=== PATIENT | male | born 1990 | race Caucasian/White ===

== ENCOUNTER 2018-03-30 12:39 | Inpatient (IN) ==
[2018-03-30] MEDS ORDERED: Bisacodyl 10 MG Supp RECTAL PRN (17:26)
--- NOTE | 2018-03-30 17:49 | P.HPIM ---
History of Present Illness Primary Care Physician: No Primary Care Physician Chief Complaint: General fatigue, malaise, fever, rigors History of Present Illness: 27-year-old male with no chronic medical illnesses who presented to the hospital because of general malaise, fatigue, cough, congestion, fever, weakness, rigors. Patient states that his symptoms started approximately 4 days ago with general constitutional symptoms of low- grade fever, fatigue, decreased appetite. Progressively got worse where he started developing rigors, shortness of breath, cough, phlegm production of brown coloration. Because he was so weak his leg started buckling on his family took him to the emergency department for evaluation. Patient had findings with significant leukocytosis, febrile illness, sinus tachycardia. Full workup was ascertained with influenza testing which was negative, strep testing which was negative, blood cultures which are pending, mono testing which is negative. Chest x-ray was performed which radiologist indicated no acute cardiopulmonary process. Due to the patient's presenting symptoms, findings he was recommended by the ER physician the patient be admitted for further evaluation and management. Patient is in a monogamous relationship with his . 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 Inpatient Certification Inpatient Certification: I certify that the inpatient services were ordered in accordance with Medicare regulations governing the order. This includes certification that hospital inpatient services are reasonable and necessary and in the case of services not specified as inpatient-only under 42 CFR 419.22(n), that they are appropriately provided as inpatient services in accordance to with the 2-midnight benchmark under 43 CFR 412.3(e) Estimated Total Length of Stay (Days): 3 Plans for Post Hospital Care: Not yet determined Review of Systems Review of Systems: all other systems reviewed are negative Constitutional: Reports chills, Reports fatigue, Reports fever(s), Reports lethargy and Reports malaise Respiratory: Reports change in phlegm color, Reports chest congestion, Reports cough and Reports excessive phlegm production PMFSH Medical History Medical History Patient denies medical problems (Acute) Surgical History Surgical History Hx of appendectomy (Acute) Family History Family History Other No pertinent family history Social History Social History Substance History: No History of Abuse Second Hand Smoke Exposure: Yes Smoking Status: Current every day smoker Tobacco Type: Cigarettes How Often Do You Have a Drink Containing Alcohol: 2 to 4 times a month Medications and Allergies Allergies Allergy/AdvReac Type Severity Reaction Status Date / Time No Known Allergies Allergy Verified 03/30/18 13:03 Home Medications Medication Instructions Recorded Confirmed Type No Known Home Medications 03/30/18 03/30/18 History Active Medications: Active Medications Acetaminophen (Tylenol) 650 mg PO Q4H PRN PRN Reason: Temp > 100.4 Al Hydroxide/Mg Hydroxide (Milk Of Magnesia Liq) 30 ml PO Q12H PRN PRN Reason: Mild Constipation Bisacodyl (Dulcolax Supp) 10 mg RECTAL DAILY PRN PRN Reason: SEVERE CONSITIPATION Heparin Sodium (Porcine) (Heparin Inj) 5,000 units SQ Q12H [place] Sodium Chloride (Ns Inj) 1,000 mls @ 100 mls/hr IV.CONT .Q10H [place] Lactulose (Lactulose Liq) 30 ml PO DAILY PRN PRN Reason: SEVERE CONSITIPATION Ondansetron HCl (Zofran Inj) 4 mg IV.PUSH Q6H PRN PRN Reason: NAUSEA OR VOMITING Senna/Docusate Sodium (Nicky-Colace) 1 tab PO BID [place] Sennosides (Senokot) 17.2 mg PO Q12H PRN PRN Reason: Moderate Constipation Sodium Chloride (Ns Flush) 2 ml IV.FLUSH BID [place] Sodium Chloride (Ns Flush) 2 ml IV.FLUSH PRN PRN PRN Reason: FLUSH AFTER USING IV ACCESS Physical Exam Narrative: GENERAL: Well-developed, well-nourished, in no acute distress. alert and orientated HEENT: Head is normocephalic without any lesions or masses noted. Facial features are symmetric. Eyes: Pupils equal round reactive to light. Extraocular muscles are intact. Conjunctivae were clear. Oropharyngeal: Pharynx without any erythema edema. Tongue is midline without deviation. Buccal mucosa is moist without any masses or lesions NECK: Supple without any masses. Trachea midline no deviation. No JVD, no bruits are appreciated CARDIAC: Regular rhythm, regular rate. S1/S2 are heard. No murmurs gallops or rubs. LUNGS: Clear to auscultation bilaterally. No wheeze, rhonchi or rales. No use of accessory muscles on inspiration or expiration. ABDOMEN: Soft, nontender. Nondistended. Bowel sounds heard in all 4 quadrants. No organomegaly or masses. Negative rebound, negative guarding EXTREMITIES: No edema, pulses are equal bilaterally. No cyanosis or clubbing NEUROLOGY: Mood and affect appear appropriate. Cranial nerves II through XII grossly intact. Muscle strength 5/5 in upper and lower extremities bilaterally. Deep tendon reflexes are 2+ in upper and lower extremities bilaterally. Caprini VTE Risk Assessment Caprini VTE Risk Assessment: No/Low Risk (score <= 1) Caprini Risk Assessment Model: Point Value = 1 Point Value = 2 Point Value = 3 Point Value = 5 Age 41-60 Minor surgery BMI > 25 kg/m2 Swollen legs Varicose veins or History of unexplained or recurrent spontaneous Oral contraceptives or hormone replacement Sepsis (< 1 month) Serious lung disease, including pneumonia (< 1 month) Abnormal pulmonary function Acute myocardial infarction Congestive heart failure (< 1 month) History of inflammatory bowel disease Medical patient at bed rest Age 61-74 Arthroscopic surgery Major open surgery (> 45 min) Laparoscopic surgery (> 45 min) Malignancy Confined to bed (> 72 hours) Immobilizing plaster cast Central venous access Age >= 75 History of VTE Family history of VTE Factor V Leiden Prothrombin [id number] Lupus anticoagulant Anticardiolipin antibodies Elevated serum homocysteine Heparin-induced thrombocytopenia Other congenital or acquired thrombophilia Stroke (< 1 month) Elective arthroplasty Hip, pelvis, or leg fracture Acute spinal cord injury (< 1 month) Prophylaxis Regimen: Total Risk Factor Score Risk Level Prophylaxis Regimen 0-1 Low Early ambulation 2 Moderate Order ONE of the following: *Sequential Compression Device (SCD) *Heparin 5000 units SQ BID 3-4 Higher Order ONE of the following medications: *Heparin 5000 units SQ TID *Enoxaparin/Lovenox 40 mg SQ daily (WT < 150 kg, CrCl > 30 mL/min) *Enoxaparin/Lovenox 30 mg SQ daily (WT < 150 kg, CrCl > 10-29 mL/min) *Enoxaparin/Lovenox 30 mg SQ BID (WT < 150 kg, CrCl > 30 mL/min) AND/OR *Sequential Compression Device (SCD) 5 or more Highest Order ONE of the following medications: *Heparin 5000 units SQ TID (Preferred with Epidurals) *Enoxaparin/Lovenox 40 mg SQ daily (WT < 150 kg, CrCl > 30 mL/min) *Enoxaparin/Lovenox 30 mg SQ daily (WT < 150 kg, CrCl > 10-29 mL/min) *Enoxaparin/Lovenox 30 mg SQ BID (WT < 150 kg, CrCl > 30 mL/min) AND *Sequential Compression Device (SCD) Assessment and Plan Plan Systemic inflammatory response syndrome, possible sepsis Patient meets criteria with febrile illness, tachycardia, leukocytosis, no infection source has been identified thus far Chest x-ray does not indicate any acute abnormality, urinalysis was clear, mono testing was negative, strep testing was negative, influenza testing was negative Blood cultures are pending Obtain Legionella testing, pneumococcal testing, sputum culture, respiratory panel Start vancomycin, Zosyn for empiric coverage Continue IV fluids Supportive care Follow CBC DVT prevention Subcutaneous heparin Sequential compression devices H&P: Quality VTE Deep Vein Thrombosis/Pulmonary Embolism Present on Admission: No
[2018-03-30] MEDS ORDERED: Vancomycin Consult Pharmacy OTHER PRN (17:57)
[2018-03-30] MEDS: Heparin - SQ 10,000 UNITS/ML Vial SQ SCH (18:35)
[2018-03-30] MEDS: Sod Chloride 0.9% Inj 1,000 ML IV.CONT SCH (18:35)
[2018-03-30] MEDS ORDERED: Vancomycin Inj 1,000 MG in Sodium Chlor 0.9% Inj 250 ML IV.SIG ONE ×2 (19:00→21:00)
[2018-03-30] MEDS ORDERED: Sod Chloride 0.9% Inj 1,000 ML IV.SIG ONE ×2 (19:01→21:46)
[2018-03-30] MEDS: Acetaminophen 325 MG Tablet PO PRN (20:02)
[2018-03-30] MEDS: Senna/Docusate Sodium 8.6/50 MG Tablet PO SCH (20:04)
[2018-03-30] MEDS: Piperacil/Tazo 4.5 GM Premix 4.5 GM/100 ML BAG IV.SIG SCH (21:51)
[2018-03-31] MEDS: Piperacil/Tazo 4.5 GM Premix 4.5 GM/100 ML BAG IV.SIG SCH ×4 (02:33→19:57)
[2018-03-31] MEDS: Acetaminophen 325 MG Tablet PO PRN (02:33)
[2018-03-31 03:28] LABS: Baso # (Auto) 0.1 th/mm3 (0.0-0.2); Baso % (Auto) 0.4 % (0.0-2.0); Eos # (Auto) 0.5 th/mm3 (0.0-0.4); Eos % (Auto) 2.1 % (0.0-4.0); Hematocrit 30.5 % (39.0-51.0); Hemoglobin 9.4 gm/dL (13.0-17.0); Lymph # (Auto) 1.5 th/mm3 (1.0-4.8); Lymph % (Auto) 6.4 % (9.0-44.0); Mean Corpuscular Hemoglobin 20.2 pg (27.0-34.0); Mean Corpuscular Volume 65.5 fL (80.0-100.0); Mono # (Auto) 1.1 th/mm3 (0.0-0.9); Mono % (Auto) 4.4 % (0.0-8.0); Neut % (Auto) 86.7 % (16.0-70.0); Platelet Count 307 th/mm3 (150-450); Red Blood Count 4.65 mil/mm3 (4.50-5.90); Red Cell Distribution Width 16.6 % (11.6-17.2); White Blood Count 24.2 th/mm3 (4.0-11.0)
[2018-03-31 03:35] LABS: Mean Corpuscular HGB Conc 30.9 % (32.0-36.0)
[2018-03-31 03:41] LABS: Potassium 3.6 meq/L (3.5-5.1)
[2018-03-31 04:25] LABS: Amphetamine Screen,Urine Pos (Neg); Barbiturate Screen,Urine Neg (Neg); Cannabinoid Screen,Urine Pos (Neg); Cocaine Screen,Urine Neg (Neg)
[2018-03-31 04:27] LABS: Opiate Screen,Urine Neg (Neg)
[2018-03-31 04:27] LABS: Albumin 2.9 g/dL (3.4-5.0); Calcium 7.4 mg/dL (8.5-10.1); Carbon Dioxide 22.1 meq/L (21.0-32.0); Total Protein 6.5 g/dL (6.4-8.2)
[2018-03-31 04:46] LABS: Dimorphic RBC Present; Ovalocytes 1+
[2018-03-31 05:25] LABS: ABG Base Excess -1.6 mmol/L (-2-2); ABG PCO2 36 mmHg (38-42); ABG PO2 67 mmHg (61-120)
[2018-03-31] MEDS: Sod Chloride 0.9% Inj 1,000 ML IV.CONT SCH ×2 (06:08→22:53)
[2018-03-31] MEDS ORDERED: Sod Chloride 0.9% Inj 1,000 ML IV.SIG SCH (06:09)
--- NOTE | 2018-03-31 06:36 | XR ---
EXAM DATE: 03/31/2018 6:31 AM EST AGE/SEX: 27 years / Male INDICATIONS: Respiratory distress. CLINICAL DATA: This is the patient's initial encounter. Patient reports that signs and symptoms have been present for 1 day and indicates a pain score of Nonresponsive. MEDICAL/SURGICAL HISTORY: None. Appendectomy. COMPARISON: [facility], CHEST 1V SINGLE AP, 03/30/2018. . FINDINGS: The study is obtained with a poor inspiratory effort. The heart size is upper limits of normal. It ma y be accentuated secondary to the poor inspiratory effort.. There is mild increased density at the in ferior aspect of the right upper lobe abutting the minor fissure and in the right base. There some mi nimal increased density at the lateral left base. CONCLUSION: Mild areas of consolidation or atelectasis being worse on the right. These do appear new. Electronically signed by: Mainor Shea MD Board Certified Radiologist 03/31/2018 6:35 AM EST
[2018-03-31] MEDS: Heparin - SQ 10,000 UNITS/ML Vial SQ SCH ×2 (06:40→18:50)
[2018-03-31] MEDS ORDERED: Propofol 1000 mg/100 ml Inj 1,000 MG/100 ML BOTTLE IV.CONT PRN (07:13)
[2018-03-31] MEDS ORDERED: Etomidate Inj 20 MG/10 ML Ampul IV.PUSH ONE (07:13)
[2018-03-31] MEDS ORDERED: Midazolam 100 MG/100 ML Inj 100 MG/100 ML BAG IV.CONT PRN (07:14)
[2018-03-31] MEDS ORDERED: Acetaminophen 325 MG Tablet PO PRN (07:19)
[2018-03-31] MEDS ORDERED: Propofol Inj 500 MG/50 ML Vial ONE (07:26)
[2018-03-31] MEDS ORDERED: Etomidate Inj 40 MG/20 ML Vial IV.PUSH ONE (07:30)
[2018-03-31] MEDS ORDERED: Norepinephrine Inj 16 MG in Sodium Chlor 0.9% Inj 234 ML IV.CONT PRN (08:00)
--- NOTE | 2018-03-31 08:07 | P.PCN ---
Date of procedure: 03/31/18 Pre-op diagnosis: Acute respiratory failure Post-op diagnosis: same Procedure: DATE: 03/31/2018 PROCEDURE: Orotracheal intubation INDICATION: Acute respiratory failure DETAILS OF PROCEDURE The patient was placed in optimal position and preoxygenated with 100% FiO2 via bag valve mask. At the start oxygen saturation was 90%. The patient was administered 20 mg etomidate IV and 50 mg rocuronium IV. I entered the oropharynx with a size 4 laryngoscope blade and obtained a grade 2 view of the airway. On single attempt a size 8.0 cuffed endotracheal tube was passed through the vocal cords. Correct tube location was confirmed with end tidal CO2 detector and by auscultating over bilateral lung silvestre. The endotracheal tube was secured with adhesive tape at a depth of 24 cm at the lips. The patient was connected to the ventilator. The patient tolerated the procedure well without any apparent complications. Oxygen saturations were maintained greater than 95% all times. STAT chest x-ray pending at time of dictation.
--- NOTE | 2018-03-31 08:08 | P.PCN ---
Date of procedure: 03/31/18 Pre-op diagnosis: Acute respiratory failure/hypotension Post-op diagnosis: same Procedure: DATE: 03/31/2018 CENTRAL LINE PLACEMENT: Left internal jugular vein. Ultrasound-guided INDICATION: Central venous access CONSENT Informed consent for procedure was not obtaining considered emergent due to hemodynamic instability. DESCRIPTION OF THE PROCEDURE The patient was placed in supine position. The skin was cleansed with Chloraprep. Additional barrier precautions included large sterile drape, sterile gloves, sterile gown, face mask, and hat. 1 % lidocaine was used for local anesthesia. Under direct ultrasound guidance and on initial attempt, the vein was accessed with an introducer needle. The guide wire was advanced and the tract was dilated. Using Seldinger technique a 7 [place] 20 cm antimicrobial coated triple-lumen catheter was advanced to a depth of 20 centimeters. The guide wire was removed. All ports had good return of dark venous blood and flushed easily with saline. The central line was secured with 2.0 silk. StatLock did not adhere to skin A sterile dressing with antibiotic disc was applied. ESTIMATED BLOOD LOSS: Minimal COMPLICATIONS: No apparent complications. STAT chest x-ray pending at time of dictation
--- NOTE | 2018-03-31 08:13 | P.CONCC ---
History of Present Illness Service: Critical care medicine Consult date: 03/31/18 Requesting Physician: Farhad Luna Reason for Consult: Respiratory failure Primary Care Provider: No Primary Care Physician Chief Complaint: General fatigue, malaise, fever, rigors History of Present Illness: This is a 27-year-old male. Admission 03/30/2018. Date of consultation 2018. No significant past medical history. He originally presented to the [facility] ED with chief complaint of general malaise, fatigue, cough, congestion , fever, weakness, rigors in reviewing medical records in [facility]. Full workup was ascertained with influenza testing which was negative, strep testing which was negative, blood cultures which are pending, mono testing which is negative. Chest x-ray revealed possible right infiltrate the patient was started on vancomycin Pipracil/tazobactam Patient had a leukocytosis, microcytic anemia and acute kidney injury on presentation with low albumin. Cultures revealed methamphetamine, benzodiazepines and cannabinoids. Patient became more hypoxic and hypotensive on the general medical floors transfer the ICU. Will reevaluate patient was on her percent nonrebreather with acute altered mental status. Patient was emergently intubated using 20 mg etomidate and 50 rocuronium essential was placed laboratories are currently pending. Review of Systems unobtainable due to endotracheal tube PMFSH - History History Provided By: Patient - Medical History Medical History: Medical History (Last Reviewed 03/31/18 @ 08:11 by Latrell Tolbert MD) Patient denies medical problems - Surgical History Surgical History: Surgical History (Last Reviewed 03/31/18 @ 08:11 by Latrell Tolbert MD) Hx of appendectomy - Family History Family History: Family History (Last Reviewed 03/31/18 @ 08:11 by Latrell Tolbert MD) Other No pertinent family history - Tobacco History Second Hand Smoke Exposure: Yes Tobacco Use In Past 30 Days: Yes Smoking Status: Current every day smoker Tobacco Type: Cigarettes - Alcohol History How Often Do You Have a Drink Containing Alcohol: 2 to 4 times a month - Substance Use History Substance History: Active Abuse Medications and Allergies Active Medications: Active Medications Acetaminophen (Tylenol) 650 mg PO Q6H PRN PRN Reason: Temp > 100.4 Al Hydroxide/Mg Hydroxide (Milk Of Magnesia Liq) 30 ml PO Q12H PRN PRN Reason: Mild Constipation Albuterol (Albuterol Neb (Prn)) 2.5 mg NEB Q2HR NEB PRN PRN Reason: DYSPNEA Albuterol (Duoneb Neb ([place])) 1 ampul NEB Q4HR NEB [facility] Last Admin: 03/31/18 08:05 Dose: 1 ampul Artificial Tears (Tears Naturale Opth Drops) 1 drop EACH EYE Q8H [facility] Bisacodyl (Dulcolax Supp) 10 mg RECTAL DAILY PRN PRN Reason: SEVERE CONSITIPATION Chlorhexidine Gluconate (Peridex 0.12% Oral Kit) 15 ml OROPHARYNG BID@0800, 2000 [facility] Heparin Sodium (Porcine) (Heparin Inj) 5,000 units SQ Q12H [facility] Last Admin: 03/31/18 06:40 Dose: 5,000 units Sodium Chloride (Ns Inj) 1,000 mls @ 100 mls/hr IV.CONT .Q10H [facility] Last Admin: 03/31/18 06:08 Dose: 100 mls/hr Piperacillin/Tazobactam/Dextrose (Zosyn 4.5 Gm Premix) 4.5 gm in 100 mls @ 200 mls/hr IV.SIG Q6H [facility] Last Infusion: 03/31/18 03:11 Dose: Infused Vancomycin HCl 1,500 mg/ (Sodium Chloride) 515 mls @ 257.5 mls/hr IV.SIG ONCE ONE Stop: 03/31/18 10:59 Midazolam HCl (Versed Inj) 100 mg in 100 mls @ 2 mls/hr IV.CONT TITRATE PRN; Protocol PRN Reason: See protocol Last Admin: 03/31/18 07:57 Dose: 2 mg/hr, 2 mls/hr Norepinephrine Bitartrate 16 (mg/ Sodium Chloride) 250 mls @ 1.87 mls/hr IV.CONT TITRATE PRN; Protocol PRN Reason: See Protocol Propofol (Diprivan 1000 Mg/100 Ml Inj) 1,000 mg in 100 mls @ 3.222 mls/hr IV.CONT TITRATE PRN; Protocol PRN Reason: Per Protocol Azithromycin 500 mg/ Sodium (Chloride) 250 mls @ 250 mls/hr IV.SIG Q24H [facility] Dexmedetomidine HCl 200 mcg/ (Sodium Chloride) 50 mls @ 5.37 mls/hr IV.CONT TITRATE PRN; Protocol PRN Reason: Per Protocol Lactulose (Lactulose Liq) 30 ml PO DAILY PRN PRN Reason: SEVERE CONSITIPATION Miscellaneous Medication () 1 each OROPHARYNG 0000,0400,1200,1600 [facility] Ondansetron HCl (Zofran Inj) 4 mg IV.PUSH Q6H PRN PRN Reason: NAUSEA OR VOMITING Pharmacy Profile Note (Vancomycin Consult Pharmacy) 1 each OTHER UNSCH PRN PRN Reason: Pharmacy to dose Senna/Docusate Sodium (Nicky-Colace) 1 tab PO BID [facility] Last Admin: 03/30/18 20:04 Dose: Not Given Sennosides (Senokot) 17.2 mg PO Q12H PRN PRN Reason: Moderate Constipation Sodium Chloride (Ns Flush) 2 ml IV.FLUSH BID [facility] Last Admin: 03/30/18 20:04 Dose: 2 ml Sodium Chloride (Ns Flush) 2 ml IV.FLUSH PRN PRN PRN Reason: FLUSH AFTER USING IV ACCESS Sodium Chloride (Ns Flush) 0 ml IV.FLUSH DAILY [facility] Sterile Water (Free Water) 100 ml G-TUBE Q8HR [facility] Terbutaline Sulfate (Brethine Inj) 1 mg SQ UNSCH PRN PRN Reason: For Extravasation Allergies Allergy/AdvReac Type Severity Reaction Status Date / Time morphine Allergy Hives Verified 03/30/18 22:19 Home Medications Medication Instructions Recorded Confirmed Type No Known Home Medications 03/30/18 03/30/18 History Physical Exam Vital signs: Vital Signs 03/30/18 17:30 03/30/18 19:43 03/30/18 20:00 Temperature 100.9 F H 99.8 F H Pulse Rate 112 H 122 H 123 H Respiratory Rate 20 48 H 16 Blood Pressure 111/74 109/56 L Pulse Oximetry 91 L 97 94 L 03/31/18 00:00 03/31/18 04:00 03/31/18 04:05 Temperature 101.9 F H 100.9 F H Pulse Rate 120 H 106 H 100 H Respiratory Rate 16 36 H 25 H Blood Pressure 120/56 L 91/50 L Pulse Oximetry 93 L 95 03/31/18 04:40 03/31/18 05:05 03/31/18 05:38 Temperature 98.4 F Pulse Rate 106 H 100 H Respiratory Rate 29 H 37 H Blood Pressure 96/48 L 85/53 L Pulse Oximetry 94 L 95 97 03/31/18 05:45 03/31/18 06:10 Temperature Pulse Rate Respiratory Rate Blood Pressure Pulse Oximetry 99 97 Intake & Output 03/30/18 03/31/18 03/31/18 18:59 06:59 18:59 Intake Total 120 / 120 3450 / 3450 Balance 120 / 120 3450 / 3450 Weight 107.4 kg Intake: IV 3450 / 3450 NS Inj 1,000 ML @ 100 mls/hr IV 1000 / 1000 .CONT .Q10H [place] Rx#:[id number] Zosyn 4.5 GM Premix 4.5 gm In 200 / 200 100 ml @ 200 mls/hr IV.SIG Q6H [place] Rx#:[id number] NS Inj 1,000 ML @ Wide Open IV. 1999 SIG BOLUS ONE Rx#:[id number] Vancomycin Inj 1,000 MG In NS 250 / 250 Inj 250 ML @ 250 mls/hr IV.SIG ONCE ONE Rx#:[id number] Oral 120 / 120 Other: # Voids 2 Date of Last Bowel Movement 03/30/18 Weight On Admission 107.4 kg - Constitutional mild distress - Routine HEENT Exam Head: Present: normocephalic, atraumatic Eye: Present: EOMI ENT: Present: mucous membranes moist - Routine Neck Exam Present: supple - Routine Respiratory Exam Present: accessory muscle use, respiratory distress, crackles, distant breath sounds - Routine Cardiovascular Exam Present: S1, S2, tachycardia. Absent: murmur - Routine Abdominal Exam Present: soft, normoactive bowel sounds - Routine Exam Patient deferred: penile exam, testicular exam, scrotal exam, groin exam, perineal exam - Routine Skin Exam Present: intact - Routine Neurological Exam Present: alert, CN II-XII intact. Absent: oriented X3, sensory deficit, motor deficit - Detailed Neurological Exam: Coma Scale Eye Opening: Spontaneous Verbal Response: Confused Motor Response: Localizing [place] Coma Scale Total: 13 - Routine Psychiatric Exam Present: unable to assess Septic Shock Reassessment Septic shock perfusion: reassessment completed Assessment and Plan - Assessment and Plan Plan: Neuro/Psych: Acute toxic metabolic encephalopathy due to underlying acute respiratory failure Urine toxicology positive for methamphetamine, benzodiazepines and cannabinoids Currently on propofol, midazolam index with any drips for sedation/vent synchrony Goal of RA SS -2 Daily sedation vacation Acetaminophen 650 by tube every 6 hours as needed fever We will start on vitamin bag daily. Monitor for withdrawals CV: Hypotension -likely volume depletion/severe sepsis Lactic acidosis pending. Follow-up on EKG and troponin Status post 4 L crystalloid resuscitation As needed norepinephrine maintain mean arterial pressure critical 65 Resp: Acute respiratory failure/hypoxic hypercapnic secondary to community acquired pneumonia/viral question PRVC Ventilator bundle Head of bed at 30 degrees Methylprednisolone succinate 40 mg IV twice daily Albuterol/ipratropium aerosols every 4 hours with albuterol aerosols every 2 as needed dyspnea Spontaneous breathing trials when clinically indicated/CPAP trials Follow-up on post intubation ABG and chest x-ray GI: Hypoalbuminemia NG tube placed. Start on Jevity 1.5 goal 60 cc an hour Pantoprazole for GI prophylaxis Docusate sodium/senna 1 tablet twice daily for bowel regimen : Yo catheter for accurate I's and O's in a critically ill patient Endo: Sliding scale insulin with Accu-Cheks to maintain euglycemia aspart insulin every 6 hours Renal: Acute kidney injury/resolved Likely secondary to volume depletion Check urine eosinophils Avoid nephrotoxic medication Monitor urine output Accurate I's and O's Heme: Leukocytosis Microcytic anemia Check iron studies/ferritin and transferrin. Occult blood. No indication for transfusion of blood products at this time. ID: Likely community acquired pneumonia Viral respiratory panel pending. Blood cultures x2, sputum, mono, influenza a and B, urine Legionella pneumococcal antigens all negative to date. Chlamydia and mycoplasma ordered Continue piperacillin/tazobactam and vancomycin and added azithromycin FEN: Currently on normal saline at 100 cc an hour. Replace electrolytes as clinically indicated per ICU likely protocol MSK: Physical therapy evaluate and treat Access -Utilize peripheral IV. Central line if indicated Prophylaxis -GI -lansoprazole -DVT -SCD/heparin subcu Consult 35 minutes critical care time excluding procedures Code Status: Full code Discussed Condition With: Patient. No family available. Care plan discussed and all questions answered.
[2018-03-31] MEDS ORDERED: Potassium Phosphate Inj 30 MMOL in Sodium Chlor 0.9% Inj 250 ML IV.SIG PRN (08:19)
[2018-03-31] MEDS ORDERED: Potassium Chlor 40 mEq Premix 40 MEQ/100 ML PIGGYBACK IV.SIG PRN ×2 (08:19)
[2018-03-31] MEDS ORDERED: Magnesium Oxide 400 MG Tablet PO PRN (08:19)
[2018-03-31] MEDS ORDERED: Magnesium Sulfate Inj 4 GM in Sodium Chlor 0.9% Inj 92 ML IV.SIG PRN (08:19)
[2018-03-31] MEDS ORDERED: Potassium Chlor 20 mEq Premix 20 MEQ/100 ML PIGGYBACK IV.SIG PRN ×2 (08:19)
[2018-03-31] MEDS ORDERED: Potassium Phosphate 500 MG Soluble Tablet PO PRN ×2 (08:19)
[2018-03-31] MEDS ORDERED: Sodium Phosphate Inj 30 MMOL in Sodium Chlor 0.9% Inj 250 ML IV.SIG PRN (08:19)
[2018-03-31] MEDS ORDERED: Magnesium Sulfate Inj 2 GM in Sodium Chlor 0.9% Inj 96 ML IV.SIG PRN (08:19)
[2018-03-31] MEDS ORDERED: Potassium Chloride 25 MEQ Effervescent Tablet PO PRN (08:19)
[2018-03-31] MEDS ORDERED: Dextrose 50% in Water 50 ML Vial IV.PUSH PRN (08:20)
--- NOTE | 2018-03-31 08:40 | XR ---
EXAM DATE: 03/31/2018 8:24 AM EST AGE/SEX: 27 years / Male INDICATIONS: Post intubation & central line placement. CLINICAL DATA: This is the patient's subsequent encounter. Patient reports that signs and symptoms h ave been present for 2 days and indicates a pain score of Nonresponsive. MEDICAL/SURGICAL HISTORY: . Smoker. Appendectomy. COMPARISON: [facility], CHEST 1V SINGLE AP, 03/31/2018. . FINDINGS: Portable AP view of the chest demonstrates a normal-sized cardiac silhouette. Endotracheal tube dista l tip is at the aortic knob level measuring 2.9 cm from the tangela, left IJ central line distal tip i s in the SVC, and nasogastric tube distal tip is in the gastric body. Multiple EKG lines overlie the patient. Lungs are underinflated and there is bilateral mid and lower lung zone airspace opacity. No pleural effusion or pneumothorax is identified. CONCLUSION: 1. Tubes and lines in appropriate position, as above. 2. Underinflation with bilateral airspace consolidation, stable from the prior examination. Electronically signed by: Mainor Ace MD Board Certified Radiologist 03/31/2018 8:38 AM EST
[2018-03-31 08:44] LABS: ABG Base Excess -4.2 mmol/L (-2-2); ABG PCO2 35 mmHg (38-42); ABG PO2 94 mmHg (61-120)
[2018-03-31] MEDS ORDERED: Vancomycin Inj 1,500 MG in Sodium Chlor 0.9% Inj 500 ML IV.SIG ONE (09:00)
[2018-03-31 09:02] LABS: Lipase 71 U/L (73-393)
[2018-03-31 09:03] LABS: Amylase 37 U/L (25-115)
[2018-03-31 09:09] LABS: Creatine Kinase 123 U/L (39-308)
--- NOTE | 2018-03-31 09:34 | US ---
EXAM DATE: 03/31/2018 9:27 AM EST AGE/SEX: 27 years / Male INDICATIONS: Increased BUN and Creatinine. CLINICAL DATA: This is the patient's initial encounter. Patient reports that signs and symptoms have been present for 1 day and indicates a pain score of Nonresponsive. MEDICAL/SURGICAL HISTORY: . Increased BUN and Creatinine. Appendectomy. COMPARISON: No prior exams available for comparison. MEASUREMENTS: Right Kidney:__11.0 x 6.8 x 5.0 cm Left Kidney:__10.9 x 5.8 x 5.4 cm FINDINGS: Right Kidney: Normal echogenicity and cortical thickness. No mass or hydronephrosis. Left Kidney: Normal echogenicity and cortical thickness. No mass or hydronephrosis. Bladder: Yo catheter is present. Bladder decompressed. Other: None. CONCLUSION: 1. Negative renal sonogram. 2. No evidence of hydronephrosis. Electronically signed by: Gerry Stapleton MD Board Certified Radiologist 03/31/2018 9:33 AM EST
[2018-03-31 10:11] LABS: Reticulocyte Percent 2.4 % (0.4-3.0)
[2018-03-31 10:20] LABS: % Iron Saturation 2.7 % (20-50)
[2018-03-31] MEDS: Azithromycin Inj 500 MG in Sodium Chlor 0.9% Inj 250 ML IV.SIG SCH (10:38)
[2018-03-31] MEDS: Chlorhexidine 0.12% Oral Kit 15 ML UDC OROPHARYNG SCH ×2 (10:40→20:05)
--- NOTE | 2018-03-31 10:53 | P.DIET ---
Nutritional Evaluation Type of nutrition evaluation: initial Nutrition consult regarding: Tube Feeding (TF review ) Objective - Diagnosis Right middle lobe pneumonia, sepsis without septic shock - Objective Body Mass Index: 39 [place] body weight: 62 kg (Class 2 obesity ) % IBW: 172 Body Weight Used for Calculations: Upper end of IBW (62kg) Energy Needs - Lower Range (kCal/kg): 30 Energy Needs - Upper Range (kCal/kg): 35 Lower Limit kCal/kg (kCals): 1,860 Upper Limit kCal/kg (kCals): 2,170 Lower Limit Protein Factor (Grams per Kg): 1.2 Upper Limit Protein Factor (Grams per Kg): 1.5 Lower Protein Needs (Protein): 74 Upper Protein Needs (Protein): 93 Dietitian Reviewed in Medical Record: Curent medications, Intake & Output, Labs , Medical history, Tube feeding Diet Order: TF Objective Comments: No significant PMH Medications; propofol labs; Cr. 1.5, GFR 56, random glucose 118 Feeding - Current Tube Feeding Tube Feeding Product: Jevity 1.5 Current kCals Provided by Tube Feedin,160 Current Protein Provided by Tube Feeding (gPRO): 92 Diprivan Rate: 3.22 Lipid kCals From Diprivan: 85 Assessment Assessment: TF review; Pt with no significant PMH presents to [facility] with general malaise, fatigue, cough, fever, decreased appetite x4 days. Pt overall found to have right middle lobe pneumonia and sepsis w/o septic shock. Pt emergently intubated this morning (1/3) and sedated with propofol. Current TF order is Jevity 1.5 running at 60mL per hour. Pt's energy and protein needs have been assessed and RD to recommend decreasing the rate of Jevity 1.5 to run at 50mL per hour to provide 1800kcal, 77g protein, 912mL free water plus an additional 85kcal from propofol to best meet pt's needs in the presence of critical illness and obesity. Labs and medications have been reviewed. Will continue to monitor clinical course and tolerance to TF. Recommendations: 1. Decrease TF rate to Jevity 1.5 at 50mL per hour 2. Monitor tolerance to TF at goal rate 3. Dietitian following Dietitian to Monitor: Lab values, Electrolytes, Intake & Output, Tube feeding tolerance, Medical course
[2018-03-31] MEDS: Oral Hygiene Kit OROPHARYNG SCH ×2 (13:35→18:50)
[2018-03-31] MEDS: MethylPREDNISolone Sod Succinate Inj 40 MG/ML Vial IV.PUSH SCH ×2 (13:40→22:52)
[2018-03-31] MEDS: Artificial Tears Opth Drops 15 ML Bottle EACH EYE SCH ×2 (13:40→18:51)
[2018-03-31] MEDS: Senna/Docusate Sodium 8.6/50 MG Tablet PO SCH ×2 (13:40→22:52)
[2018-03-31] MEDS: Vancomycin Inj 1,500 MG in Sodium Chlor 0.9% Inj 500 ML IV.SIG SCH (14:04)
[2018-03-31] MEDS: Dexmedetomidine Inj 200 MCG in Sodium Chlor 0.9% Inj 48 ML IV.CONT PRN ×2 (14:25→20:25)
[2018-03-31] MEDS: Multivitamin Inj 10 ML, Thiamine Inj 100 MG, Folic Acid Inj 1 MG in Sodium Chlor 0.9% I... IV.SIG SCH (14:33)
[2018-03-31] MEDS: Insulin NovoLOG Aspart Correctional Sugar Inj SQ SCH ×2 (14:34→18:52)
[2018-03-31 15:30] LABS: Creatinine,Urine Random 227 mg/dL (27-300); Sodium,Urine Random 153 meq/L
[2018-04-01] MEDS: Insulin NovoLOG Aspart Correctional Sugar Inj SQ SCH ×3 (02:34→12:21)
[2018-04-01] MEDS: Piperacil/Tazo 4.5 GM Premix 4.5 GM/100 ML BAG IV.SIG SCH ×4 (02:35→20:43)
[2018-04-01] MEDS: Oral Hygiene Kit OROPHARYNG SCH ×4 (02:35→18:17)
[2018-04-01] MEDS: Artificial Tears Opth Drops 15 ML Bottle EACH EYE SCH ×3 (02:36→16:58)
[2018-04-01] MEDS: Vancomycin Inj 1,500 MG in Sodium Chlor 0.9% Inj 500 ML IV.SIG SCH ×2 (02:41→13:20)
[2018-04-01] MEDS: Dexmedetomidine Inj 200 MCG in Sodium Chlor 0.9% Inj 48 ML IV.CONT PRN (03:48)
[2018-04-01 04:53] LABS: Baso % (Auto) 0.1 % (0.0-2.0); Eos % (Auto) 0.1 % (0.0-4.0); Hemoglobin 9.1 gm/dL (13.0-17.0); Lymph # (Auto) 0.8 th/mm3 (1.0-4.8); Lymph % (Auto) 4.1 % (9.0-44.0); Mean Corpuscular HGB Conc 31.3 % (32.0-36.0); Mean Corpuscular Hemoglobin 20.6 pg (27.0-34.0); Mean Corpuscular Volume 65.8 fL (80.0-100.0); Mean Platelet Volume 7.5 fL (7.0-11.0); Mono # (Auto) 0.3 th/mm3 (0.0-0.9); Mono % (Auto) 1.6 % (0.0-8.0); Neut # (Auto) 18.4 th/mm3 (1.8-7.7); Neut % (Auto) 94.1 % (16.0-70.0); Platelet Count 270 th/mm3 (150-450); Red Blood Count 4.41 mil/mm3 (4.50-5.90); Red Cell Distribution Width 17.2 % (11.6-17.2); White Blood Count 19.5 th/mm3 (4.0-11.0)
[2018-04-01 05:20] LABS: Activated Partial Thrombo Time 31.8 sec (23.4-31.7); INR 1.3 Ratio; Prothrombin Time 13.5 sec (9.8-11.6)
[2018-04-01] MEDS: Heparin - SQ 10,000 UNITS/ML Vial SQ SCH (05:25)
[2018-04-01 05:41] LABS: Chloride 114 meq/L (98-107); Potassium 3.4 meq/L (3.5-5.1); Sodium 142 meq/L (136-145)
[2018-04-01 06:12] LABS: Alanine Aminotransferase 23 U/L (12-78); Albumin 2.5 g/dL (3.4-5.0); Alkaline Phosphatase 63 U/L (45-117); Anion Gap 7 meq/L (5-15); Aspartate Aminotransferase 21 U/L (15-37); Blood Urea Nitrogen 12 mg/dL (7-18); Calcium 7.4 mg/dL (8.5-10.1); Glomerular Filtration Rate Greater Than 89 mL/min (>89); Glucose,Random 159 mg/dL (74-106); Magnesium 2.3 mg/dL (1.5-2.5); Phosphorus 1.8 mg/dL (2.5-4.9); Thyroid Stimulating Hormone 0.093 uIU/mL (0.358-3.740); Total Protein 6.4 g/dL (6.4-8.2)
--- NOTE | 2018-04-01 06:19 | P.PNCC ---
Subjective Subjective Remarks/Hospital Course: This is a 27-year-old male. Admission 03/30/2018. Date of consultation 2018. No significant past medical history. He originally presented to the [facility] ED with chief complaint of general malaise, fatigue, cough, congestion , fever, weakness, rigors in reviewing medical records in [facility]. Full workup was ascertained with influenza testing which was negative, strep testing which was negative, blood cultures which are pending, mono testing which is negative. Chest x-ray revealed possible right infiltrate the patient was started on vancomycin Pipracil/tazobactam Patient had a leukocytosis, microcytic anemia and acute kidney injury on presentation with low albumin. Cultures revealed methamphetamine, benzodiazepines and cannabinoids. Patient became more hypoxic and hypotensive on the general medical floors transfer the ICU. Will reevaluate patient was on her percent nonrebreather with acute altered mental status. Patient was emergently intubated using 20 mg etomidate and 50 rocuronium essential was placed laboratories are currently pending. SUBJECTIVE: 04/01: Temperature Max 101.9. Currently afebrile. PEEP still at 8. FiO2 40%. Tube is currently 20 cc now. Currently only on dexmedetomidine drip. Comfortable and arousable. Replacing potassium and phosphorus this a.m. Objective Vital Signs / I&O: Vital Signs 03/31/18 08:00 03/31/18 08:07 03/31/18 08:12 Temperature 101.9 F H Pulse Rate 118 H 106 H Respiratory Rate 16 25 H 17 Blood Pressure 120/61 Pulse Oximetry 97 99 03/31/18 08:37 03/31/18 08:40 03/31/18 08:42 Temperature Pulse Rate 110 H Respiratory Rate 17 Blood Pressure 87/53 L 89/51 L 95/58 L Pulse Oximetry 100 03/31/18 08:47 03/31/18 09:00 03/31/18 09:52 Temperature Pulse Rate 108 H 108 H Respiratory Rate 18 17 Blood Pressure 99/56 L Pulse Oximetry 100 100 99 03/31/18 10:06 03/31/18 11:00 03/31/18 11:07 Temperature Pulse Rate 102 H 106 H 108 H Respiratory Rate 17 18 18 Blood Pressure 97/58 L 110/69 Pulse Oximetry 100 99 99 03/31/18 11:39 03/31/18 12:00 03/31/18 12:07 Temperature Pulse Rate 108 H 110 H Respiratory Rate 18 22 Blood Pressure 91/47 L Pulse Oximetry 98 98 03/31/18 13:07 03/31/18 14:07 03/31/18 14:14 Temperature Pulse Rate 102 H 102 H Respiratory Rate 19 18 Blood Pressure 87/47 L 90/50 L 94/55 L Pulse Oximetry 100 100 03/31/18 15:07 03/31/18 16:00 03/31/18 16:07 Temperature Pulse Rate 104 H 118 H 106 H Respiratory Rate 22 19 Blood Pressure 92/50 L 102/56 L Pulse Oximetry 97 96 03/31/18 17:07 03/31/18 18:07 03/31/18 19:07 Temperature Pulse Rate 94 H 86 80 Respiratory Rate 18 18 17 Blood Pressure 95/55 L 99/61 L 103/61 Pulse Oximetry 97 98 98 03/31/18 19:18 03/31/18 20:00 03/31/18 21:00 Temperature 98.7 F Pulse Rate 81 84 76 Respiratory Rate 16 17 16 Blood Pressure 89/56 L 90/51 L Pulse Oximetry 98 97 97 03/31/18 22:00 03/31/18 22:03 03/31/18 23:00 Temperature Pulse Rate 68 68 Respiratory Rate 16 16 17 Blood Pressure 94/55 L 100/59 L Pulse Oximetry 98 97 96 03/31/18 23:21 04/01/18 00:00 04/01/18 01:00 Temperature 98.3 F Pulse Rate 72 68 64 Respiratory Rate 18 16 16 Blood Pressure 96/54 L 100/56 L Pulse Oximetry 96 96 04/01/18 01:10 04/01/18 02:00 04/01/18 03:00 Temperature Pulse Rate 64 62 Respiratory Rate 17 17 17 Blood Pressure 99/59 L Pulse Oximetry 95 95 93 L 04/01/18 03:28 04/01/18 04:00 04/01/18 04:44 Temperature 98 F Pulse Rate 63 70 Respiratory Rate 17 18 18 Blood Pressure Pulse Oximetry 92 L 94 L 04/01/18 05:00 04/01/18 06:00 Temperature Pulse Rate 66 76 Respiratory Rate 18 22 Blood Pressure 104/64 Pulse Oximetry 93 L 93 L Intake & Output 01/03/19 01/03/19 01/04/19 06:59 18:59 06:59 Intake Total 3450 / 3450 3676.2 / 3676.2 400 / 400 Output Total 119 / 119 925 / 925 Balance 3450 / 3450 3557.2 / 3557.2 -525 / -525 Weight 107.4 kg 108.9 kg Intake: IV 3450 / 3450 3376.2 / 3376.2 200 / 200 Precedex Inj 200 MCG In NS Inj 100 / 100 48 ML @ 0.2 MCG/KG/HR 5.37 mls/ hr IV.CONT TITRATE PRN Rx#: [id number] NS Inj 1,000 ML @ 100 mls/hr IV 1000 / 1000 1000 / 1000 .CONT .Q10H [facility] Rx#:[id number] Azithromycin Inj 500 MG In NS 250 / 250 Inj 250 ML @ 250 mls/hr IV.SIG Q24H [place] Rx#:[id number]-12 Inj 10 ML Thiamine Inj 511.2 / 511.2 100 MG Folvite Inj 1 MG In NS Inj 500 ML @ 125 mls/hr IV.SIG Q24H [place] Rx#:[id number] Zosyn 4.5 GM Premix 4.5 gm In 200 / 200 100 / 100 100 / 100 100 ml @ 200 mls/hr IV.SIG Q6H [facility] Rx#:[id number] NS Inj 1,000 ML @ 1000 mls/hr 2000 / 2000 1000 / 1000 IV.SIG BOLUS [facility] Rx#:[id number] Vancomycin Inj 1,000 MG In NS 250 / 250 Inj 250 ML @ 250 mls/hr IV.SIG ONCE ONE Rx#:[id number] Vancomycin Inj 1,500 MG In NS 515 / 515 Inj 500 ML @ 257.5 mls/hr IV. SIG Q12H [facility] Rx#:[id number] Oral 0 / 0 Tube Feeding 100 / 100 Water Bolus Amount 300 / 300 100 / 100 Output: Urine Amount (Catheter) 119 / 119 925 / 925 Indwelling Urethral Catheter 119 / 119 925 / 925 Other: # Voids 2 Date of Last Bowel Movement 03/30/18 # Bowel Movements 0 Weight On Admission 107.4 kg Result Diagrams: 04/01/18 04:45 04/01/18 04:45 Other Results: Microbiology 03/30/18 19:40 Sputum - Expectorated Sputum Gram Stain - Final 03/30/18 19:45 Urine - Random Urine Legionella Antigen - Final Presumptive negative for Legionella pneumophila serogroup 1 antigen in urine, suggesting no recent or recurrent infection. Infection due to Legionella cannot be ruled out since other serogroups and species may cause disease, antigen may not be present in urine in early infection, and the level of antigen present in the urine may be below the detection limit of the test. 03/30/18 19:45 Urine - Random Urine Streptococcus pneumoniae Antigen (M - Final Presumptive negative for streptococcus pneumoniae antigen, suggesting no current or recent infection. Infection due to Streptococcus pneumoniae cannot be ruled out since the antigen present in the sample may be below the detection limit of the test. Imaging: Abdomen/Bladder Ultrasound 03/31/18 00:00 CONCLUSION: 1. Negative renal sonogram. 2. No evidence of hydronephrosis. Chest X-Ray 03/31/18 06:09 CONCLUSION: Mild areas of consolidation or atelectasis being worse on the right. These do appear new. Chest X-Ray 03/31/18 07:51 CONCLUSION: 1. Tubes and lines in appropriate position, as above. 2. Underinflation with bilateral airspace consolidation, stable from the prior examination. Objective Remarks: GENERAL: 27-year-old male currently resting in bed no acute distress orotracheally intubated SKIN: Warm and dry. No rash. Multiple tattoos HEAD: Atraumatic. Normocephalic. EYES: Pupils equal and round. No scleral icterus. No injection or drainage. ENT: No nasal bleeding or discharge. Mucous membranes pink and moist. NECK: Trachea midline. No JVD. CARDIOVASCULAR: Regular rate and rhythm. RESPIRATORY: No accessory muscle use. Clear to auscultation. Breath sounds equal bilaterally. GASTROINTESTINAL: Abdomen soft, non-tender, nondistended. Hepatic and splenic margins not palpable. MUSCULOSKELETAL: Extremities without clubbing, cyanosis, or edema. No obvious deformities. NEUROLOGICAL: Sedated on the ventilator. Arousable. Moves all 4 extremities spontaneously. Assessment and Plan - Assessment and Plan Plan: Neuro/Psych: Acute toxic metabolic encephalopathy due to underlying acute respiratory failure Urine toxicology positive for methamphetamine, benzodiazepines and cannabinoids Currently on propofol, midazolam dexmedetomidine drip for sedation/vent synchrony Goal of RA SS -2 Daily sedation vacation Acetaminophen 650 by tube every 6 hours as needed fever We will start on vitamin bag daily for 2-3. Monitor for withdrawals CV: Hypotension -likely volume depletion/severe sepsis Follow-up on EKG and troponin Status post 4 L crystalloid resuscitation As needed norepinephrine maintain mean arterial pressure critical 65 Resp: Acute respiratory failure/hypoxic hypercapnic secondary to community acquired pneumonia/viral question [facility] 16550/1 point 04/05/39 Ventilator bundle Head of bed at 30 degrees Methylprednisolone succinate 40 mg IV twice daily Albuterol/ipratropium aerosols every 4 hours with albuterol aerosols every 2 as needed dyspnea Spontaneous breathing trials when clinically indicated/CPAP trials 04/02 ordered chest x-ray GI: Hypoalbuminemia NG tube placed. Continue Jevity 1.5 goal 50 cc an hour per nutrition's recommendations Lansoprazole for GI prophylaxis Docusate sodium/senna 1 tablet twice daily for bowel regimen : Yo catheter for accurate I's and O's in a critically ill patient Endo: Low TSH Sliding scale insulin with Accu-Cheks to maintain euglycemia aspart insulin every 6 hours Check total T3/free T4 Renal: Acute kidney injury/resolved Likely secondary to volume depletion Check urine eosinophils Avoid nephrotoxic medication Monitor urine output Accurate I's and O's Heme: Leukocytosis Microcytic anemia Low FE. Normal TIBC. Empirically start on ferrous sulfate 300 mg twice daily with vitamin C 500 mg daily Pending occult blood. No indication for transfusion of blood products at this time. ID: Likely community acquired pneumonia plus or minus aspiration Viral respiratory panel pending. Blood cultures x2, sputum, mono, influenza a and B, urine Legionella pneumococcal antigens all negative to date. Chlamydia and mycoplasma ordered Continue piperacillin/tazobactam and vancomycin and added azithromycin FEN: Hypokalemia Hypophosphatemia Currently on normal saline at 30 cc an hour. Replace electrolytes as clinically indicated per ICU electrolyte protocol 30 mmol K-Phos IV x1 now. Recheck in a.m. MSK: Physical therapy evaluate and treat Access -Utilize peripheral IV. Central line if indicated Prophylaxis -GI -lansoprazole -DVT -SCD/heparin subcu Follow-up 35 minutes critical care time excluding procedures Code Status: Full code
[2018-04-01] MEDS ORDERED: Potassium Phosphate Inj 30 MMOL in Sodium Chlor 0.9% Inj 250 ML IV.SIG ONE (06:21)
[2018-04-01 06:46] LABS: Dimorphic RBC Present; Ovalocytes 1+
[2018-04-01] MEDS: Azithromycin Inj 500 MG in Sodium Chlor 0.9% Inj 250 ML IV.SIG SCH (08:23)
[2018-04-01] MEDS: MethylPREDNISolone Sod Succinate Inj 40 MG/ML Vial IV.PUSH SCH ×2 (08:24→20:44)
[2018-04-01] MEDS: Ascorbic Acid 500 MG Tablet PO SCH (08:24)
[2018-04-01] MEDS: Ferrrous Sulfate 300 MG/5 ML UDC PO SCH ×2 (08:24→20:38)
[2018-04-01] MEDS: Chlorhexidine 0.12% Oral Kit 15 ML UDC OROPHARYNG SCH ×2 (08:25→20:38)
[2018-04-01] MEDS: Multivitamin Inj 10 ML, Thiamine Inj 100 MG, Folic Acid Inj 1 MG in Sodium Chlor 0.9% I... IV.SIG SCH (11:20)
[2018-04-01] MEDS: Senna/Docusate Sodium 8.6/50 MG Tablet PO SCH ×2 (12:20→20:38)
[2018-04-01] MEDS ORDERED: Pharmacy Ordered Lab Info OTHER ONE (23:45)
[2018-04-02] MEDS: Insulin NovoLOG Aspart Correctional Sugar Inj SQ SCH ×5 (00:05→17:39)
[2018-04-02] MEDS: Oral Hygiene Kit OROPHARYNG SCH ×2 (00:06→06:34)
[2018-04-02] MEDS: Vancomycin Inj 1,500 MG in Sodium Chlor 0.9% Inj 500 ML IV.SIG SCH ×2 (00:26→13:00)
[2018-04-02] MEDS: Artificial Tears Opth Drops 15 ML Bottle EACH EYE SCH ×3 (00:35→16:42)
[2018-04-02 00:43] LABS: Eos % (Auto) 0.1 % (0.0-4.0); Hematocrit 27.4 % (39.0-51.0); Hemoglobin 8.6 gm/dL (13.0-17.0); Lymph # (Auto) 0.7 th/mm3 (1.0-4.8); Lymph % (Auto) 2.5 % (9.0-44.0); Mean Corpuscular HGB Conc 31.3 % (32.0-36.0); Mean Corpuscular Hemoglobin 20.8 pg (27.0-34.0); Mean Corpuscular Volume 66.2 fL (80.0-100.0); Mean Platelet Volume 8.2 fL (7.0-11.0); Mono # (Auto) 0.8 th/mm3 (0.0-0.9); Mono % (Auto) 2.9 % (0.0-8.0); Neut # (Auto) 25.7 th/mm3 (1.8-7.7); Neut % (Auto) 94.5 % (16.0-70.0); Platelet Count 275 th/mm3 (150-450); Red Blood Count 4.14 mil/mm3 (4.50-5.90); Red Cell Distribution Width 17.4 % (11.6-17.2); White Blood Count 27.2 th/mm3 (4.0-11.0)
[2018-04-02 01:02] LABS: Chloride 113 meq/L (98-107); Potassium 3.3 meq/L (3.5-5.1); Sodium 142 meq/L (136-145)
[2018-04-02 01:05] LABS: Albumin 2.5 g/dL (3.4-5.0); Anion Gap 8 meq/L (5-15); Calcium 7.8 mg/dL (8.5-10.1); Carbon Dioxide 20.8 meq/L (21.0-32.0); Glucose,Random 204 mg/dL (74-106); Magnesium 2.4 mg/dL (1.5-2.5)
[2018-04-02 01:06] LABS: Blood Urea Nitrogen 14 mg/dL (7-18)
[2018-04-02 01:08] LABS: Alanine Aminotransferase 27 U/L (12-78); Aspartate Aminotransferase 26 U/L (15-37)
[2018-04-02 01:09] LABS: Glomerular Filtration Rate 73 mL/min (>89)
[2018-04-02 01:10] LABS: Total Protein 6.3 g/dL (6.4-8.2)
[2018-04-02 01:11] LABS: Alkaline Phosphatase 68 U/L (45-117)
[2018-04-02 02:34] LABS: Dimorphic RBC Present; Ovalocytes 1+
[2018-04-02] MEDS: Piperacil/Tazo 4.5 GM Premix 4.5 GM/100 ML BAG IV.SIG SCH ×4 (02:51→21:46)
[2018-04-02] MEDS ORDERED: Potassium Phosphate Inj 15 MMOL in Sodium Chlor 0.9% Inj 250 ML IV.SIG ONE (06:00)
[2018-04-02] MEDS: Heparin - SQ 10,000 UNITS/ML Vial SQ SCH ×3 (06:15→17:18)
--- NOTE | 2018-04-02 06:23 | XR ---
EXAM DATE: 04/02/2018 5:15 AM EST AGE/SEX: 27 years / Male INDICATIONS: Pneumonia. Status post extubation. CLINICAL DATA: This is the patient's subsequent encounter. Patient reports that signs and symptoms h ave been present for 3 days and indicates a pain score of 0/10. MEDICAL/SURGICAL HISTORY: . Smoker. Appendectomy. Central line. COMPARISON: [facility], CHEST 1V SINGLE AP, 03/31/2018. . FINDINGS: A single AP semierect portable view of the chest was obtained and demonstrates interval extubation an d removal of nasogastric tube. The lung volumes remain low. Streaky and hazy right perihilar opacity remains. The left internal jugular central venous line is unchanged. There is no distinct effusion. T he heart size is at the upper limits of normal. The bony thorax remains intact. CONCLUSION: 1. Interval extubation and removal of nasogastric tube. 2. Hazy and streaky right perihilar opacity remains. Electronically signed by: Mane Stewart MD Board Certified Radiologist 04/02/2018 6:21 AM EST
--- NOTE | 2018-04-02 09:47 | P.PNIM ---
Subjective Interval history: 27-year-old male who is seen examined today up on septic shock , hypoxic respiratory failure, right-sided pneumonia. Patient was originally admitted to medical service on 03/30/18. Patient was admitted with empirical antibiotics, respiratory support. Patient clinical condition deteriorated rather rapidly and patient was transferred to the ICU and subsequently intubated and placed on ventilator for respiratory support. Central line was placed for pressor administration. Patient was under the care of the washcloth folder and continued to tolerate treatment well. Patient was successfully extubated on 04/01/18. Once patient remained stable services were transferred back to the medical team. Upon seeing the patient today he appears to be much better. He is sitting up in bed and talking without any significant complaints. Patient still having low blood pressure with tachycardia, tachypnea. X-ray did show a significant right sided pneumonia. Patient remained ICU at this time since clinically he is still septic and with hypoxia. Physical Exam Vital signs: Last Vital Signs Temp 98.5 F 04/02/18 04:00 Pulse 113 H 04/02/18 07:34 Resp 30 H 04/02/18 07:34 BP 95/48 L 04/02/18 04:00 Pulse Ox 94 L 04/02/18 07:34 Intake & Output 03/31/18 04/01/18 04/02/18 04/03/18 06:59 06:59 06:59 06:59 Intake Total 3570 / 3570 4691.2 / 4691.2 3074.2 / 3074.2 Output Total 1044 / 1044 500 / 500 Balance 3570 / 3570 3647.2 / 3647.2 2574.2 / 2574.2 Weight 107.4 kg 108.9 kg 113 kg Narrative: GENERAL: Well-developed, well-nourished, in no acute distress. alert and orientated HEENT: Head is normocephalic without any lesions or masses noted. Facial features are symmetric. Eyes: Extraocular muscles are intact. Conjunctivae were clear. NECK: Supple without any masses. Trachea midline no deviation. No JVD, CARDIAC: Regular rhythm, regular rate. S1/S2 are heard. No murmurs gallops or rubs. LUNGS: Rhonchi heard in all lung silvestre, no wheeze or rales. No use of accessory muscles on inspiration or expiration. ABDOMEN: Soft, nontender. Nondistended. Bowel sounds heard in all 4 quadrants. No organomegaly or masses. Negative rebound, negative guarding EXTREMITIES: No edema, pulses are equal bilaterally. No cyanosis or clubbing NEUROLOGY: Mood and affect appear appropriate. Cranial nerves II through XII grossly intact. Moving all extremities, speech is clear Urinary Catheter Management Indwelling Urethral Catheter: Cath placed during this visit: yes, but has since been removed by the nurse Insertion date: 03/31/18 Removal date: 04/01/18 Removal time: 12:00 Results Labs CBC & Chem 7: 04/02/18 00:14 04/02/18 00:14 Labs: Microbiology 03/31/18 12:00 Sputum - Endotracheal Gram Stain - Final 03/31/18 12:00 Sputum - Endotracheal Sputum Culture - Preliminary No growth in 24 hours 03/30/18 19:40 Sputum - Expectorated Sputum Gram Stain - Final 03/30/18 19:40 Sputum - Expectorated Sputum Sputum Culture - Preliminary Heavy growth normal respiratory marquez at 24 hours Imaging Imaging: Impressions Chest X-Ray 04/02/18 06:00 CONCLUSION: 1. Interval extubation and removal of nasogastric tube. 2. Hazy and streaky right perihilar opacity remains. Assessment and Plan Plan Acute hypoxic respiratory failure secondary to right-sided pneumonia We will continue O2 supplementation maintain O2 sats greater than 92% Continue empiric antibiotics to include vancomycin, Zosyn, Zithromax Continue nebulizer treatment every 6 hours while awake and every 2 hours as needed Continue Solu-Medrol 40 mg IV every 12 hours Continue incentive spirometry Septic shock Patient continues to meet criteria with tachycardia, tachypnea, leukocytosis, right-sided pneumonia Continue empiric antibiotics as above Blood cultures remain negative for 2 days Legionella testing, pneumococcal testing, sputum culture, respiratory panel were all negative Continue IV fluids Supportive care Anemia, microcytic Check stool for occult blood Check anemia studies Hyperglycemia Check hemoglobin A1c Accu-Cheks with sliding scale insulin Acute kidney injury, resolved Likely secondary to septic shock Continue IV fluid Monitor renal function Urine drug screen was positive for amphetamine, benzodiazepine, cannabinoids Patient openly admits to taking another person's Adderall and then Xanax in order to come off the Adderall Patient does use marijuana on a daily basis Patient started on multivitamin daily DVT prevention Subcutaneous heparin Sequential compression devices Progress Note: Quality VTE Deep Vein Thrombosis/Pulmonary Embolism Present on Admission: No
[2018-04-02] MEDS: Azithromycin Inj 500 MG in Sodium Chlor 0.9% Inj 250 ML IV.SIG SCH (10:09)
[2018-04-02] MEDS: MethylPREDNISolone Sod Succinate Inj 40 MG/ML Vial IV.PUSH SCH ×2 (10:11→22:22)
[2018-04-02] MEDS: Ascorbic Acid 500 MG Tablet PO SCH (10:12)
[2018-04-02] MEDS: Ferrrous Sulfate 300 MG/5 ML UDC PO SCH ×2 (10:12→22:49)
[2018-04-02] MEDS: Senna/Docusate Sodium 8.6/50 MG Tablet PO SCH ×2 (10:13→22:22)
[2018-04-02] MEDS ORDERED: Pharmacy Ordered Lab Info OTHER ONE (11:45)
[2018-04-02 14:26] LABS: Reticulocyte Percent 2.2 % (0.4-3.0)
[2018-04-02 14:54] LABS: % Iron Saturation 3.2 % (20-50); Folate 16.2 ng/mL (3.1-17.5)
[2018-04-02] MEDS: Multivitamin Inj 10 ML, Thiamine Inj 100 MG, Folic Acid Inj 1 MG in Sodium Chlor 0.9% I... IV.SIG SCH (16:29)
[2018-04-02] MEDS: Chlorhexidine 0.12% Oral Kit 15 ML UDC OROPHARYNG SCH (16:43)
[2018-04-02] MEDS: Sod Chloride 0.9% Inj 1,000 ML IV.CONT SCH ×2 (17:22)
[2018-04-03] MEDS: Insulin NovoLOG Aspart Correctional Sugar Inj SQ SCH ×4 (00:09→18:51)
[2018-04-03] MEDS: Artificial Tears Opth Drops 15 ML Bottle EACH EYE SCH ×3 (00:43→16:46)
[2018-04-03] MEDS: Vancomycin Inj 1,800 MG in Sodium Chlor 0.9% Inj 500 ML IV.SIG SCH ×2 (01:01→15:10)
[2018-04-03] MEDS: Piperacil/Tazo 4.5 GM Premix 4.5 GM/100 ML BAG IV.SIG SCH ×3 (03:12→15:10)
[2018-04-03] MEDS: Heparin - SQ 10,000 UNITS/ML Vial SQ SCH ×2 (04:59→18:51)
[2018-04-03 07:55] LABS: Baso # (Auto) 0.4 th/mm3 (0.0-0.2); Baso % (Auto) 1.7 % (0.0-2.0); Hematocrit 28.2 % (39.0-51.0); Hemoglobin 8.9 gm/dL (13.0-17.0); Lymph # (Auto) 1.8 th/mm3 (1.0-4.8); Lymph % (Auto) 8.2 % (9.0-44.0); Mean Corpuscular HGB Conc 31.5 % (32.0-36.0); Mean Corpuscular Hemoglobin 20.9 pg (27.0-34.0); Mean Corpuscular Volume 66.3 fL (80.0-100.0); Mono # (Auto) 0.9 th/mm3 (0.0-0.9); Mono % (Auto) 4.1 % (0.0-8.0); Neut # (Auto) 18.3 th/mm3 (1.8-7.7); Platelet Count 321 th/mm3 (150-450); Red Blood Count 4.26 mil/mm3 (4.50-5.90); Red Cell Distribution Width 17.4 % (11.6-17.2); White Blood Count 21.4 th/mm3 (4.0-11.0)
[2018-04-03 08:03] LABS: Chloride 111 meq/L (98-107); Sodium 141 meq/L (136-145)
[2018-04-03 08:06] LABS: Calcium 7.9 mg/dL (8.5-10.1)
[2018-04-03 08:07] LABS: Anion Gap 5 meq/L (5-15); Blood Urea Nitrogen 12 mg/dL (7-18); Carbon Dioxide 25.5 meq/L (21.0-32.0); Glucose,Random 123 mg/dL (74-106)
[2018-04-03 08:10] LABS: Glomerular Filtration Rate Greater Than 89 mL/min (>89)
[2018-04-03 09:08] LABS: Ovalocytes 1+; Tear Drop Cells 1+
[2018-04-03] MEDS: Azithromycin Inj 500 MG in Sodium Chlor 0.9% Inj 250 ML IV.SIG SCH (09:53)
[2018-04-03] MEDS: Ferrrous Sulfate 300 MG/5 ML UDC PO SCH ×2 (09:57→21:53)
[2018-04-03] MEDS: MethylPREDNISolone Sod Succinate Inj 40 MG/ML Vial IV.PUSH SCH (09:57)
[2018-04-03] MEDS: Senna/Docusate Sodium 8.6/50 MG Tablet PO SCH ×2 (09:57→21:54)
[2018-04-03] MEDS: Ascorbic Acid 500 MG Tablet PO SCH (09:57)
--- NOTE | 2018-04-03 11:32 | P.PNIM ---
Subjective Interval history: 27-year-old male seen examined today for follow-up on acute respiratory failure, upper respiratory infection, pneumonia. Patient is sitting in chair and doing much better at this time. He is no longer requiring oxygen. White count is come down nicely. Patient is very eager to go home at this time. Did discuss with him that we will repeat his CBC later and if it continues to show improvement we can anticipate discharging him home this afternoon if he remained stable. Vital signs are stable. Patient remains afebrile. Physical Exam Vital signs: Last Vital Signs Temp 96.5 F L 04/03/18 08:00 Pulse 91 H 04/03/18 08:00 Resp 20 04/03/18 08:00 BP 114/65 04/03/18 08:00 Pulse Ox 93 L 04/03/18 08:31 Intake & Output 04/01/18 04/02/18 04/03/18 04/04/18 06:59 06:59 06:59 06:59 Intake Total 4691.2 / 4691.2 3074.2 / 3074.2 4429.2 / 4429.2 Output Total 1044 / 1044 500 / 500 800 / 800 Balance 3647.2 / 3647.2 2574.2 / 2574.2 3629.2 / 3629.2 Weight 108.9 kg 113 kg Narrative: GENERAL: Well-developed, well-nourished, in no acute distress. alert and orientated HEENT: Head is normocephalic without any lesions or masses noted. Facial features are symmetric. Eyes: Extraocular muscles are intact. Conjunctivae were clear. NECK: Supple without any masses. Trachea midline no deviation. No JVD, CARDIAC: Regular rhythm, regular rate. S1/S2 are heard. No murmurs gallops or rubs. LUNGS: Clear to auscultation bilaterally, no rhonchi, wheeze or rales. No use of accessory muscles on inspiration or expiration. ABDOMEN: Soft, nontender. Nondistended. Bowel sounds heard in all 4 quadrants. No organomegaly or masses. Negative rebound, negative guarding EXTREMITIES: No edema, pulses are equal bilaterally. No cyanosis or clubbing NEUROLOGY: Mood and affect appear appropriate. Cranial nerves II through XII grossly intact. Moving all extremities, speech is clear Urinary Catheter Management Indwelling Urethral Catheter: Cath placed during this visit: yes, but has since been removed by the nurse Insertion date: 03/31/18 Removal date: 04/01/18 Removal time: 12:00 Results Labs CBC & Chem 7: 04/03/18 13:00 04/03/18 07:40 Labs: Microbiology 04/02/18 22:40 Stool Stool Occult Blood ([place]) - Final Hemoccult positive 03/31/18 12:00 Sputum - Endotracheal Gram Stain - Final 03/31/18 12:00 Sputum - Endotracheal Sputum Culture - Final Rare growth normal respiratory marquez 03/30/18 19:40 Sputum - Expectorated Sputum Gram Stain - Final 03/30/18 19:40 Sputum - Expectorated Sputum Sputum Culture - Final Heavy growth normal respiratory marquez Assessment and Plan Plan Acute hypoxic respiratory failure secondary to right-sided pneumonia, significantly improved We will continue O2 supplementation maintain O2 sats greater than 92% Continue empiric antibiotics to include vancomycin, Zosyn, Zithromax, changed to p.o. Levaquin and Zithromax Continue nebulizer treatment every 6 hours while awake and every 2 hours as needed Continue Solu-Medrol 40 mg IV every 12 hours, changed to prednisone 20 mg twice daily Continue incentive spirometry Septic shock, resolved Patient continues to meet criteria with tachycardia, tachypnea, leukocytosis, right-sided pneumonia Continue antibiotics as above Blood cultures remain negative for 4 days Legionella testing, pneumococcal testing, sputum culture, respiratory panel were all negative Continue IV fluids Supportive care Anemia, microcytic Stool for occult blood was positive, patient was on oral ferrous sulfate Anemia studies indicating iron deficient anemia Hemoglobin has remained stable throughout his stay in the hospital Hyperglycemia Secondary to steroid use Hemoglobin A1c 5.7 Accu-Cheks with sliding scale insulin Acute kidney injury, resolved Likely secondary to septic shock Continue IV fluid Monitor renal function Urine drug screen was positive for amphetamine, benzodiazepine, cannabinoids Patient openly admits to taking another person's Adderall and then Xanax in order to come off the Adderall Patient does use marijuana on a daily basis Patient started on multivitamin daily DVT prevention Subcutaneous heparin Sequential compression devices Discharge Planning: Anticipate discharge later this afternoon if leukocytosis continues to improve. Progress Note: Quality VTE Deep Vein Thrombosis/Pulmonary Embolism Present on Admission: No
[2018-04-03] MEDS: Sod Chloride 0.9% Inj 1,000 ML IV.CONT SCH (12:27)
[2018-04-03 13:00] LABS: Hemoglobin A1c 5.7 % (4.3-6.0)
[2018-04-03 13:03] LABS: Baso # (Auto) 0.3 th/mm3 (0.0-0.2); Baso % (Auto) 1.3 % (0.0-2.0); Eos % (Auto) 0.2 % (0.0-4.0); Hematocrit 29.5 % (39.0-51.0); Hemoglobin 9.1 gm/dL (13.0-17.0); Lymph % (Auto) 9.2 % (9.0-44.0); Mean Corpuscular Hemoglobin 20.5 pg (27.0-34.0); Mean Corpuscular Volume 66.5 fL (80.0-100.0); Mono # (Auto) 1.2 th/mm3 (0.0-0.9); Mono % (Auto) 5.3 % (0.0-8.0); Neut # (Auto) 18.5 th/mm3 (1.8-7.7); Platelet Count 290 th/mm3 (150-450); Red Blood Count 4.44 mil/mm3 (4.50-5.90); Red Cell Distribution Width 17.2 % (11.6-17.2)
[2018-04-03 13:05] LABS: Mean Corpuscular HGB Conc 30.8 % (32.0-36.0)
[2018-04-03] MEDS ORDERED: Sod Chloride 0.9% Inj 1,000 ML IV.SIG ONE (13:28)
--- NOTE | 2018-04-03 17:29 | P.DS ---
DS: Providers Date of admission: 03/30/18 17:07 Primary care physician: No Primary Care Physician Consults: 03/31/18 07:32 Consult to Drawer Upfitter Stat Consulting Provider: Latrell Tolbert For STAT consult, spoke directly to:: Dr Tolbert Reason for Consultation: Septic shock, respiratory failure Notified:: Service Spoke with:: salvador Date Notified:: 03/31/18 Time Notified:: 07:47 Ordering Provider: GERG 04/01/18 12:39 Consult to Hospitalist Routine Consulting Provider: Andrew Dacosta Reason for Consultation: Person of care in a.m. 04/02. Admission with overdose. Extubated 04/01. Notified:: Service Spoke with:: OCTAVIANO Date Notified:: 04/01/18 Time Notified:: 12:50 Ordering Provider: RAFFY Anticipated date of discharge: 04/03/18 Brief History from admission: 27-year-old male with no chronic medical illnesses who presented to the hospital because of general malaise, fatigue, cough, congestion, fever, weakness, rigors. Patient states that his symptoms started approximately 4 days ago with general constitutional symptoms of low- grade fever, fatigue, decreased appetite. Progressively got worse where he started developing rigors, shortness of breath, cough, phlegm production of brown coloration. Because he was so weak his leg started buckling on his family took him to the emergency department for evaluation. Patient had findings with significant leukocytosis, febrile illness, sinus tachycardia. Full workup was ascertained with influenza testing which was negative, strep testing which was negative, blood cultures which are pending, mono testing which is negative. Chest x-ray was performed which radiologist indicated no acute cardiopulmonary process. Due to the patient's presenting symptoms, findings he was recommended by the ER physician the patient be admitted for further evaluation and management. Patient is in a monogamous relationship with his . 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 DS: Diagnosis Discharge Diagnosis (1) Sepsis: Status: Acute (2) Acute respiratory failure with hypoxia: Status: Acute (3) Pneumonia involving right lung: Status: Acute (4) Microcytic anemia: Status: Acute (5) Iron deficiency anemia: Status: Acute (6) Acute kidney injury: Status: Acute DS: Summary Acute hypoxic respiratory failure secondary to right-sided pneumonia, resolved Patient received O2 supplementation maintain O2 sats greater than 92%, until he was successfully weaned off oxygen Patient was on empiric antibiotics to include vancomycin, Zosyn, Zithromax, changed to p.o. Levaquin and Zithromax Patient received nebulizer treatment every 6 hours while awake and every 2 hours as needed Patient was started on stress dose steroid and successfully weaned to prednisone 20 mg twice daily Continue incentive spirometry Septic shock, resolved Patient met criteria with tachycardia, tachypnea, leukocytosis, right-sided pneumonia Blood cultures remain negative for 4 days Legionella testing, pneumococcal testing, sputum culture, respiratory panel were all negative Anemia, microcytic Stool for occult blood was positive, patient was on oral ferrous sulfate Anemia studies indicating iron deficient anemia Hemoglobin remained stable throughout his stay in the hospital Hyperglycemia Secondary to steroid use Hemoglobin A1c 5.7 Accu-Cheks with sliding scale insulin during hospitalization Acute kidney injury, resolved Likely secondary to septic shock Continue IV fluid Monitor renal function Urine drug screen was positive for amphetamine, benzodiazepine, cannabinoids Patient openly admits to taking another person's Adderall and then Xanax in order to come off the Adderall Patient does use marijuana on a daily basis Patient started on multivitamin daily Time Spent with Patient Total time spent providing and/or coordinating discharge services: Greater than 30 minutes Quality: VTE Deep Vein Thrombosis/Pulmonary Embolism Present on Admission: No Exam Narrative Exam Narrative: Well-developed, well-nourished, in no acute distress. alert and orientated HEENT: Head is normocephalic without any lesions or masses noted. Facial features are symmetric. Eyes: Extraocular muscles are intact. Conjunctivae were clear. NECK: Supple without any masses. Trachea midline no deviation. No JVD, CARDIAC: Regular rhythm, regular rate. S1/S2 are heard. No murmurs gallops or rubs. LUNGS: Clear to auscultation bilaterally, no rhonchi, wheeze or rales. No use of accessory muscles on inspiration or expiration. ABDOMEN: Soft, nontender. Nondistended. Bowel sounds heard in all 4 quadrants. No organomegaly or masses. Negative rebound, negative guarding EXTREMITIES: No edema, pulses are equal bilaterally. No cyanosis or clubbing NEUROLOGY: Mood and affect appear appropriate. Cranial nerves II through XII grossly intact. Moving all extremities, speech is clear Results Procedures completed during hospitalization: DATE: 03/31/2018 CENTRAL LINE PLACEMENT: Left internal jugular vein. Ultrasound-guided DATE: 03/31/2018 PROCEDURE: Orotracheal intubation Labs on day of discharge: Labs from last 24 hours 04/03/18 04/03/18 04/03/18 16:35 13:00 12:09 CBC w Diff Auto diff final WBC 22.0 H RBC 4.44 L Hgb 9.1 L Hct 29.5 L MCV 66.5 L MCH 20.5 L MCHC 30.8 L RDW 17.2 Plt Count 290 MPV 8.0 Neut % (Auto) 84.0 H Lymph % (Auto) 9.2 [place] % (Auto) 5.3 Eos % (Auto) 0.2 Baso % (Auto) 1.3 Neut # (Auto) 18.5 H Lymph # (Auto) 2.0 [place] # (Auto) 1.2 H Eos # (Auto) 0.0 Baso # (Auto) 0.3 H WBC Differential . Diff Scan Differential Comment . Tear Drop Cells Ovalocytes Sodium Potassium Chloride Carbon Dioxide Anion Gap BUN Creatinine Estimated GFR POC Glucose 125 H 226 H Random Glucose Hemoglobin A1c Calcium 04/03/18 04/03/18 04/03/18 08:56 07:40 07:40 CBC w Diff Slide review pending WBC 21.4 H RBC 4.26 L Hgb 8.9 L Hct 28.2 L MCV 66.3 L MCH 20.9 L MCHC 31.5 L RDW 17.4 H Plt Count 321 MPV 8.0 Neut % (Auto) 86.0 H Lymph % (Auto) 8.2 L [place] % (Auto) 4.1 Eos % (Auto) 0.0 Baso % (Auto) 1.7 Neut # (Auto) 18.3 H Lymph # (Auto) 1.8 [place] # (Auto) 0.9 Eos # (Auto) 0.0 Baso # (Auto) 0.4 H WBC Differential . Diff Scan Auto diff confirmed Differential Comment . Tear Drop Cells 1+ H Ovalocytes 1+ H Sodium 141 Potassium 4.0 Chloride 111 H Carbon Dioxide 25.5 Anion Gap 5 BUN 12 Creatinine 0.97 Estimated GFR Greater than 89 POC Glucose 219 H Random Glucose 123 H Hemoglobin A1c Calcium 7.9 L 04/03/18 04/02/18 04/02/18 05:02 22:38 00:14 CBC w Diff WBC RBC Hgb Hct MCV MCH MCHC RDW Plt Count MPV Neut % (Auto) Lymph % (Auto) [place] % (Auto) Eos % (Auto) Baso % (Auto) Neut # (Auto) Lymph # (Auto) [place] # (Auto) Eos # (Auto) Baso # (Auto) WBC Differential Diff Scan Differential Comment Tear Drop Cells Ovalocytes Sodium Potassium Chloride Carbon Dioxide Anion Gap BUN Creatinine Estimated GFR POC Glucose 147 H 152 H Random Glucose Hemoglobin A1c 5.7 Calcium Impressions ITS Impressions Abdomen/Bladder Ultrasound 03/31/18 00:00 CONCLUSION: 1. Negative renal sonogram. 2. No evidence of hydronephrosis. Chest X-Ray 04/02/18 06:00 CONCLUSION: 1. Interval extubation and removal of nasogastric tube. 2. Hazy and streaky right perihilar opacity remains. Discharge Plan Discharge Disposition Patient Disposition: Discharge Home Discharge Condition Condition: Stable Discharge Order Discharge Orders: Discharge Order (Routine); Ordered 04/03/18 Ordered By: Farhad Luna Discharge Details Anticipated Discharge Date: 04/03/18 Physicians Team Primary Care Provider: Primary Care Chaparrita Hendrickson Attending Provider: Grzegorz Ibrahim Other Providers: Latrell Tolbert Rxs /Orders / Referrals /Forms Prescriptions: New azithromycin 500 mg tablet 500 mg PO DAILY 5 Days Qty: 5 RF: 0 levofloxacin [Levaquin] 750 mg tablet 750 mg PO DAILY 5 Days Qty: 5 RF: 0 ferrous sulfate 325 mg (65 mg iron) tablet,delayed release (DR/EC) 325 mg PO BID Qty: 60 RF: 0 prednisone 5 mg tablets,dose pack 5 mg PO PER PKG DIR Qty: 21 RF: 0 pantoprazole 40 mg Tablet,Delayed Release (Dr/Ec) 40 mg PO DAILY Qty: 14 RF: 0 Continue No Known Home Medications RF: 0 Ambulatory Orders / Order Sets / DME: Complete Blood Count with Diff (Routine) Timeframe: 1 Week Location: Determined by Patient Ordered By: Farhad Luna Referrals: Primary Care Chaparrita Hendrickson [Primary Care Provider] - See Instructions ( Please call the physician's office to book YOUR F/U APT W/ PCP) Discharge Instructions Patient Printed Instructions: Iron Supplements (By mouth), Prednisone (By mouth ), Azithromycin (By mouth), Levofloxacin (By mouth), Pantoprazole (By mouth), Acute Kidney Injury (DC), Iron Deficiency Anemia (GEN), Sepsis (GEN), Anemia ( GEN), Pneumonia (GEN), Acute Respiratory Failure (GEN) Status ED Status: Admitted Patient Discharge Information Discharge Date/Time: 04/04/18 09:47
[2018-04-03 18:19] LABS: Hematocrit 30.9 % (39.0-51.0); Hemoglobin 9.7 gm/dL (13.0-17.0); Mean Corpuscular HGB Conc 31.4 % (32.0-36.0); Mean Corpuscular Hemoglobin 20.9 pg (27.0-34.0); Mean Corpuscular Volume 66.5 fL (80.0-100.0); Mean Platelet Volume 7.6 fL (7.0-11.0); Platelet Count 329 th/mm3 (150-450); Red Blood Count 4.64 mil/mm3 (4.50-5.90); Red Cell Distribution Width 17.2 % (11.6-17.2); White Blood Count 20.2 th/mm3 (4.0-11.0)
[2018-04-03] MEDS: predniSONE 20 MG Tablet PO SCH (21:54)
[2018-04-04] MEDS: Insulin NovoLOG Aspart Correctional Sugar Inj SQ SCH ×2 (01:12→06:38)
[2018-04-04] MEDS: Artificial Tears Opth Drops 15 ML Bottle EACH EYE SCH ×2 (02:14→08:29)
[2018-04-04] MEDS: Heparin - SQ 10,000 UNITS/ML Vial SQ SCH (06:38)
[2018-04-04 06:57] LABS: Baso % (Auto) 0.1 % (0.0-2.0); Eos # (Auto) 0.1 th/mm3 (0.0-0.4); Eos % (Auto) 0.3 % (0.0-4.0); Hematocrit 30.5 % (39.0-51.0); Hemoglobin 9.3 gm/dL (13.0-17.0); Lymph # (Auto) 2.2 th/mm3 (1.0-4.8); Mean Corpuscular Hemoglobin 20.4 pg (27.0-34.0); Mean Corpuscular Volume 66.9 fL (80.0-100.0); Mean Platelet Volume 8.2 fL (7.0-11.0); Mono % (Auto) 5.5 % (0.0-8.0); Neut % (Auto) 82.1 % (16.0-70.0); Platelet Count 314 th/mm3 (150-450); Red Blood Count 4.55 mil/mm3 (4.50-5.90); Red Cell Distribution Width 17.4 % (11.6-17.2); White Blood Count 18.3 th/mm3 (4.0-11.0)
[2018-04-04 07:00] LABS: Mean Corpuscular HGB Conc 30.5 % (32.0-36.0)
[2018-04-04 07:54] LABS: Platelet Estimate Normal (Normal); Platelet Morphology Normal (Normal)
[2018-04-04] MEDS: Senna/Docusate Sodium 8.6/50 MG Tablet PO SCH (08:25)
[2018-04-04] MEDS: Ascorbic Acid 500 MG Tablet PO SCH (08:25)
[2018-04-04] MEDS: predniSONE 20 MG Tablet PO SCH (08:26)
[2018-04-04] MEDS: Ferrrous Sulfate 300 MG/5 ML UDC PO SCH (08:28)
[2018-04-04 08:47] VITALS: BP 131/60; PULSE 74; RESP 18; TEMP 96.3
[2018-04-04] MEDS ORDERED: Azithromycin 250 MG Tablet PO SCH (09:00)
[2018-04-04] MEDS ORDERED: levoFLOXacin 750 MG Tablet PO SCH (09:00)
[2018-04-04 09:39] VITALS: O2SAT 98
--- NOTE | 2018-04-04 09:57 | P.PNIM ---
Subjective Interval history: 27-year-old male who is seen examined today for follow-up on pneumonia, sepsis. Patient is doing much better. Patient had active discharge yesterday if white count was less than 20,000, however was 20.2. This morning it is 18,000. Clinically the gentleman is much improved and very eager to go home. We will continue with discharge planning. Physical Exam Vital signs: Last Vital Signs Temp 96.3 F L 04/04/18 08:00 Pulse 74 04/04/18 08:00 Resp 18 04/04/18 08:00 BP 131/60 04/04/18 08:00 Pulse Ox 98 04/04/18 08:00 Intake & Output 04/02/18 04/03/18 04/04/18 04/05/18 06:59 06:59 06:59 06:59 Intake Total 3074.2 / 3074.2 4429.2 / 4429.2 3340 / 3340 200 / 200 Output Total 500 / 500 800 / 800 Balance 2574.2 / 2574.2 3629.2 / 3629.2 3340 / 3340 200 / 200 Weight 113 kg 109.7 kg 109.7 kg Narrative: GENERAL: Well-developed, well-nourished, in no acute distress. alert and orientated CARDIAC: Regular rhythm, regular rate. S1/S2 are heard. No murmurs gallops or rubs. LUNGS: Clear to auscultation bilaterally, no rhonchi, wheeze or rales. No use of accessory muscles on inspiration or expiration. Urinary Catheter Management Indwelling Urethral Catheter: Cath placed during this visit: yes, but has since been removed by the nurse Insertion date: 03/31/18 Removal date: 04/01/18 Removal time: 12:00 Results Labs CBC & Chem 7: 04/04/18 06:10 04/03/18 07:40 Procedures Procedures: DATE: 03/31/2018 CENTRAL LINE PLACEMENT: Left internal jugular vein. Ultrasound-guided DATE: 03/31/2018 PROCEDURE: Orotracheal intubation Assessment and Plan (1) Sepsis: Code(s): A41.9 - Sepsis, unspecified organism Status: Acute (2) Acute respiratory failure with hypoxia: Code(s): J96.01 - Acute respiratory failure with hypoxia Status: Acute (3) Pneumonia involving right lung: Code(s): J18.9 - Pneumonia, unspecified organism Status: Acute (4) Microcytic anemia: Code(s): D50.9 - Iron deficiency anemia, unspecified Status: Acute (5) Iron deficiency anemia: Code(s): D50.9 - Iron deficiency anemia, unspecified Status: Acute (6) Acute kidney injury: Code(s): N17.9 - Acute kidney failure, unspecified Status: Acute Plan Acute hypoxic respiratory failure secondary to right-sided pneumonia, significantly improved We will continue O2 supplementation maintain O2 sats greater than 92% Continue empiric antibiotics to include vancomycin, Zosyn, Zithromax, changed to p.o. Levaquin and Zithromax Continue nebulizer treatment every 6 hours while awake and every 2 hours as needed Continue Solu-Medrol 40 mg IV every 12 hours, changed to prednisone 20 mg twice daily Continue incentive spirometry Septic shock, resolved Patient continues to meet criteria with tachycardia, tachypnea, leukocytosis, right-sided pneumonia Continue antibiotics as above Blood cultures remain negative for 4 days Legionella testing, pneumococcal testing, sputum culture, respiratory panel were all negative Continue IV fluids Supportive care Anemia, microcytic Stool for occult blood was positive, patient was on oral ferrous sulfate Anemia studies indicating iron deficient anemia Hemoglobin has remained stable throughout his stay in the hospital Hyperglycemia Secondary to steroid use Hemoglobin A1c 5.7 Accu-Cheks with sliding scale insulin Acute kidney injury, resolved Likely secondary to septic shock Continue IV fluid Monitor renal function Urine drug screen was positive for amphetamine, benzodiazepine, cannabinoids Patient openly admits to taking another person's Adderall and then Xanax in order to come off the Adderall Patient does use marijuana on a daily basis Patient started on multivitamin daily DVT prevention Subcutaneous heparin Sequential compression devices Progress Note: Quality VTE Deep Vein Thrombosis/Pulmonary Embolism Present on Admission: No
[2018-04-04] MEDS ORDERED: VANCOMYCIN TROUGH OTHER ONE (12:45)
== END 2018-04-04 09:47 | disposition home or self-care (01) | DRG 871 ==
LOC: PHEDDLT 17:06 → PH3 17:07 → PHICU 03-31 05:03 → PH3 04-02 18:27
PROVIDERS: ADMIT Internal Medicine; ATTEND Internal Medicine
DX: T38.0X5A Adverse effect of glucocorticoids and synthetic analogues, initial encounter; E88.09 Other disorders of plasma-protein metabolism, not elsewhere classified; R65.21 Severe sepsis with septic shock; R73.9 Hyperglycemia, unspecified; F12.90 Cannabis use, unspecified, uncomplicated; F19.90 Other psychoactive substance use, unspecified, uncomplicated; E87.6 Hypokalemia; J96.02 Acute respiratory failure with hypercapnia; F17.210 Nicotine dependence, cigarettes, uncomplicated; D50.9 Iron deficiency anemia, unspecified; E83.39 Other disorders of phosphorus metabolism; G92 Toxic encephalopathy; J18.1 Lobar pneumonia, unspecified organism; A41.9 Sepsis, unspecified organism; J96.01 Acute respiratory failure with hypoxia; E86.9 Volume depletion, unspecified; N17.9 Acute kidney failure, unspecified; R19.5 Other fecal abnormalities
CPT/HCPCS: 31500; 36556; 36600; 36620; 71010; 71045; 76775; 76937; 80048; 80053; 80202; 80307; 82140; 82150; 82272; 82550; 82570; 82607; 82728; 82746; 82805; 82948; 82962; 83010; 83036; 83540; 83550; 83605; 83615; 83690; 83735; 84100; 84300; 84439; 84443; 84466; 84480; 84484; 85025; 85027; 85044; 85384; 85610; 85730; 86631; 86632; 86738; 87070; 87205; 87253; 87449; 87633; 92610; 94002; 94150; 94640; 94656; 94664; 94665; 97161; 97530; G0195; J0456; J1644; J1815; J2250; J2543; J2704; J2920; J3370; J3411; J7030; J7040; J7050; J7506; J7512